=== PATIENT | male | born 1975 | race Caucasian/White ===

== ENCOUNTER 2024-12-23 09:08 | Outpatient (CLI) | payer BC | END 2024-12-23 09:09 | disposition home or self-care (01) | LOC: CSHULT 09:08 | PROVIDERS: ATTEND Internal Medicine Gastroenterology | DX: K50.00 Crohn's disease of small intestine without complications (principal); K76.0 Fatty (change of) liver, not elsewhere classified; K60.30 Anal fistula, unspecified; K82.4 Cholesterolosis of gallbladder | CPT/HCPCS: 76705 ==